=== PATIENT | male | born 1995 | race Caucasian/White ===

== ENCOUNTER → 2017-03-12 | Outpatient (CLI) | payer OTHER ==
[~2017-03-12] VITALS: Ht 172.7 cm; Wt 74.2 kg
[~2017-03-12] MED LIST: CELEBREX 200 M200 M1 PO; HYDROCODONE-AP1 EAC6 PO; NAPROSYN500 MG PO; TRAMADOL 50 MG50 MG PO
[2017-03-12 09:42] VITALS: BP 153/79
== END | disposition home or self-care (01) ==
LOC: PAIN 07:23
DX: M54.12 Radiculopathy, cervical region (principal); F17.220 Nicotine dependence, chewing tobacco, uncomplicated; Z98.890 Other specified postprocedural states; Z88.0 Allergy status to penicillin

== ENCOUNTER → 2017-03-19 | Outpatient (CLI) | payer OTHER ==
[~2017-03-19] VITALS: Ht 172.7 cm; Wt 73.2 kg
--- NOTE | ~2017-03-19 | HPC ---
[facility] [place] [address] PAIN MANAGEMENT CONSULTATION Name: JERRY AMES Room #: REG Wellington Sanchez#: [id number] Admission: 03/19/17 Attend Phys: Monster Nicholson DO Discharge: Date of : 89 Report #: [id number] THIS REPORT FOR: //name// CC: Georgina Nicholson DATE OF SERVICE: 03/19/2017 The patient is a 21-year-old gentleman, prior seen in the pain clinic 03/12/2017. He was seen for symptomatic cervical radiculopathy, had prior single cervical epidural injection back in August 2015 with 1-1/2 years of improvement. At the last visit 03/12/2017, we sought authorization for repeat cervical epidural injection due to ongoing right greater than left C6 radiculopathy. The patient presents to pain clinic today for this injection. Rates pain 2 on a 0-10 visual analog scale, but is still significantly exacerbated with activity, right greater than left side. ASSESSMENT: Symptomatic cervical radiculopathy. PROCEDURE: Cervical epidural injection under fluoroscopy. PROCEDURE NOTE: After written and informed consent was obtained including risk of dural puncture, spinal cord trauma, paralysis and increased pain, the patient was taken to the fluoroscopy suite and placed in the prone position, with appropriate abdominal bolstering, neck was flexed, palms under the thighs. Skin was prepped with ChloraPrep. Sterile draping was applied. Skin wheal with 1% Xylocaine was raised. A 22-gauge 3-1/2 inch epidural Tuohy needle was placed via a midline approach at the C7-T1 interspace, advanced under biplanar fluoroscopy using continuous loss of resistance. With appropriate loss of resistance at the expected depth on lateral view, the glass loss of resistance syringe was disconnected. A low volume extension tubing was connected to the needle and a 5 mL syringe. Negative aspiration for cerebrospinal fluid or blood was noted. A 1 mL of Omnipaque was injected which showed spread within the epidural space on biplanar fluoroscopy. This was followed with 80 mg of triamcinolone plus 1 mL of 1.5% preservative Xylocaine. Needle was withdrawn to the interspinous ligament, 0.5 mL of Xylocaine was used to flush the needle. The needle was then completely withdrawn. The area was cleansed. Band-Aid was applied. The patient was allowed to move off the procedure table and ambulated to the recovery room, monitored for an appropriate period of time, discharged in good and stable condition. By: [id number] Monster Nicholson DO /salazar
[2017-03-19 09:26] VITALS: BP 142/76
== END | disposition home or self-care (01) ==
LOC: PAIN 07:42
DX: M54.12 Radiculopathy, cervical region (principal); Z87.891 Personal history of nicotine dependence